=== PATIENT | male | born 1940 | race Caucasian/White ===

== ENCOUNTER → 2016-11-08 | Day surgery (SDC) | payer MEDICARE, BC ==
[~2016-11-08] MED LIST: ABILIFY10 MG PO; ABILIFY5 MG PO; ALEVE220 M1 PO; ASPIRIN EC81 M1 PO; ASPIRIN PO; ASPIRIN81 M1 PO; BUMEX1 MG; BUMEX1 MG PO; BUMEX2 MG PO; BUSPIRONE HCL10 MG PO; CLARITIN10 MG; COUMADIN5 MG PO; CYMBALTA PO; DIAZEPAM10 MG PO; DOXYCYCLINE150 MG PO; EFFEXOR-XR150 MG PO; FENTANYL1 EAC2 TD; FLAX SEED OIL1000 MG PO; FLOMAX0.4 M1 PO; HYDROCHLOROTHIA25 MG PO; KLOR-CON SPRIN10 MEQ PO; LISINOPRIL PO; LUNESTA2 M1 PO; MICROZIDE12.5 M1 PO; MINOCIN100 M1 PO; MIRAPEX0.75 MG PO; MORPHINE; NASONEX17 GM; NORCO 10/325 TA1 TAB PO; PAXIL PO; PERCOCET 10/3251 TAB PO; POTASSIUM CHLO10 ME1 PO; PRINIVIL40 MG PO; REMERON15 MG PO; TYLOX 5/500 CAP1 CAP; VALIUM10 MG PO; VENLAFAXINE HC150 M1 PO; VICODIN 5/500 T1 TAB; VOLTAREN75 MG PO; ZESTRIL40 MG PO; ZYRTEC
--- NOTE | ~2016-11-08 | OR ---
Unit #: [id number] #: [id number] Patient: BALTAZAR MOSLEY [id number] [address] [address] [id number] O MR#: [id number] NAME: BALTAZAR MOSLEY ROOM: Date of Procedure: 11/08/2016 Admission Date: 11/08/2016 Surgeon: Daniel Moreno M.D. : 1940 Attending Physician: Daniel Moreno M.D. Primary Care Physician: Arlette Au M.D. OPERATIVE REPORT PREOPERATIVE DIAGNOSES Back pain, degenerative disk disease, spinal stenosis, radiculopathy. POSTOPERATIVE DIAGNOSES Back pain, degenerative disk disease, spinal stenosis, radiculopathy. PROCEDURE PERFORMED Lumbar epidural steroid injection with fluoroscopic guidance for needle localization. INDICATIONS FOR PROCEDURE The patient is a 76-year-old male, who had worsening back pain with some monoradicular flare. His symptoms are actually most consistent with spinal stenosis as known to exist. He has an intrathecal pump, which does very well for his chronic back pain, it was last treated a year ago with epidural steroids and did extremely well with a tremendous increase in activity level for over 6 months. The pain has been increasing over the last several months. Plan is to repeat another epidural steroid injection based on his history, pathology, symptomatology, and response to treatment. DESCRIPTION OF PROCEDURE The patient was placed in the seated position. Standard monitors were applied. Sterile prep and drape of the lumbar area was performed. The skin then through left of midline at the L3-L4 level was localized with 1% lidocaine. An 18-gauge Hustead needle was then advanced via left paramedian approach and loss of resistance technique in toward the epidural space. After confirming proper needle tip positioning with fluoroscopy and radiographic contrast, 80 mg of Depo-Medrol and 4 mL of 0.125% bupivacaine were deposited. The patient tolerated the procedure otherwise well and was discharged to the recovery room in stable condition. Dictated by... Daniel Moreno M.D. LHP/modl TD: 11/08/2016 23:01 JOB #: [id number] Unit #: [id number] #: [id number] Patient: BALTAZAR MOSLEY OPERATIVE REPORT Page 1 of 1 X Daniel Moreno MD X PROCEDURE OPERATIVE NOTE
== END | disposition home or self-care (01) ==
LOC: CCSC 10:38
DX: G89.29 Other chronic pain (principal); M51.16 Intervertebral disc disorders with radiculopathy, lumbar region; M48.06 Spinal stenosis, lumbar region; Z88.0 Allergy status to penicillin; Z79.01 Long term (current) use of anticoagulants; Z79.51 Long term (current) use of inhaled steroids; Z79.899 Other long term (current) drug therapy
CPT/HCPCS: J1040; J2250

== ENCOUNTER → 2016-11-22 | Day surgery (SDC) | payer MEDICARE, BC ==
--- NOTE | ~2016-11-22 | OR ---
Unit #: [id number] #: [id number] Patient: BALTAZAR MOSLEY [id number] [address] [address] [id number] O MR#: [id number] NAME: BALTAZAR MOSLEY ROOM: Date of Procedure: 11/22/2016 Admission Date: 11/22/2016 Surgeon: Daniel Moreno M.D. : 1940 Attending Physician: Daniel Moreno M.D. Primary Care Physician: Arlette Au M.D. OPERATIVE REPORT PREOPERATIVE DIAGNOSES Back pain, radiculopathy, degenerative disk disease, spinal stenosis. POSTOPERATIVE DIAGNOSES Back pain, radiculopathy, degenerative disk disease, spinal stenosis. PROCEDURE PERFORMED Lumbar epidural steroid injection with fluoroscopic guidance for needle localization. INDICATIONS FOR PROCEDURE The patient is a 76-year-old male with worsening back and radicular pain due to nonsurgical pathology causing nerve root irritation and spinal stenosis. The patient has treated primarily with pain pump. He had epidural steroid injections done last year. He had re-flaring of the radiculitis and stenosis symptoms, so decision was made to give a trial of epidural steroids. First was done 2 weeks ago resulted in 50% settling of his symptoms. Based on his good partial response, we are going to proceed with a second injection at this point. DESCRIPTION OF PROCEDURE The patient was placed in a seated position. Standard monitors were applied. Sterile prep and drape of the lumbar area was performed. The skin at the left of midline at the L3-L4 level was localized with 1% lidocaine. An 18-gauge Choice Therapeuticstead needle was then advanced via left paramedian approach and loss of resistance technique in toward the epidural space. After confirming proper positioning with fluoroscopy and radiographic contrast, 80 mg of Depo-Medrol and 4 mL of 0.125% bupivacaine were deposited. The patient tolerated the procedure otherwise well and was discharged to the recovery room in stable condition. Dictated by... Daneil Moreno M.D. LHP/modl TD: 11/23/2016 02:39 JOB #: [id number] Unit #: [id number] #: [id number] Patient: BALTAZAR MOSLEY OPERATIVE REPORT Page 1 of 1 X Daniel Moreno MD X PROCEDURE OPERATIVE NOTE
== END | disposition home or self-care (01) ==
LOC: CCSC 10:49
DX: M51.16 Intervertebral disc disorders with radiculopathy, lumbar region (principal); M48.06 Spinal stenosis, lumbar region
CPT/HCPCS: J1040; J2250

== ENCOUNTER → 2016-12-13 | Day surgery (SDC) | payer MEDICARE, BC ==
--- NOTE | ~2016-12-13 | OR ---
Unit #: [id number] #: [id number] Patient: BALTZAAR MOSLEY [id number] [address] [place], [place] [address] [id number] O MR#: [id number] NAME: BALTAZAR MOSLEY ROOM: Date of Procedure: 12/13/2016 Admission Date: 12/13/2016 Surgeon: Daniel Moreno M.D. : 1940 Attending Physician: Daniel Moreno M.D. Referring Physician: Daniel Moreno M.D. Primary Care Physician: Arlette Au M.D. OPERATIVE REPORT PREOPERATIVE DIAGNOSES Back pain, radiculopathy, degenerative disk disease, lumbar spinal stenosis. POSTOPERATIVE DIAGNOSES Back pain, radiculopathy, degenerative disk disease, lumbar spinal stenosis. PROCEDURE PERFORMED Lumbar epidural steroid injection with fluoroscopic guidance for needle localization. INDICATIONS FOR PROCEDURE The patient is a 76-year-old male, who had flaring of back and radicular pain that was not helped by his pump which helps his chronic pain issues, but not settle with conservative measures. The feeling was that there was a bit of a radiculitis as the etiology and the decision made to give a trial of epidural steroids. Two of which were done at this point over the last month and a half or so. They have given additive significant settling of his pain down near its baseline before flared. Requests a final injection trying to see if we can get it back to that pre-flare level which is reasonable. We will follow the patient back at pain center. DESCRIPTION OF PROCEDURE The patient was placed in a seated position. Standard monitors were applied. Sterile prep and drape of the lumbar area was performed. The skin then at the L4 level was localized with 1% lidocaine just to the right of midline. An 18-gauge MyWealthtead needle was then advanced via right paramedian approach and loss of resistance technique in toward the epidural space. The patient did not complain of pain or paresthesia during needle advancement. After confirming proper positioning with fluoroscopy and radiographic contrast, 80 mg of Depo-Medrol and 4 mL of 0.125% bupivacaine were deposited. The patient tolerated the procedure otherwise well and was discharged to the recovery room in stable condition. Dictated by... Daniel Moreno M.D. LHP/modl Unit #: [id number] #: [id number] Patient: BALTAZAR MOSLEY TD: 12/13/2016 17:36 JOB #: [id number] OPERATIVE REPORT Page 1 of 1 X Daniel Moreno MD X PROCEDURE OPERATIVE NOTE
== END | disposition home or self-care (01) ==
LOC: CCSC 10:30
DX: G89.29 Other chronic pain (principal); M51.16 Intervertebral disc disorders with radiculopathy, lumbar region; M48.06 Spinal stenosis, lumbar region; Z88.0 Allergy status to penicillin; Z79.01 Long term (current) use of anticoagulants; Z79.899 Other long term (current) drug therapy
CPT/HCPCS: J1040; J2250

== ENCOUNTER → 2017-01-20 | Outpatient (CLI) | payer MEDICARE, BC ==
--- NOTE | ~2017-01-20 | MR18 ---
[facility] A Service of [facility] & [facility] RADIOLOGY TEXT RESULTS PATIENT: BALTAZAR MOSLEY LOCATION: [facility] : 44 UNIT #: [id number] AGE: [address]: Arlette Au MD SEX: M ORDER DR: [id number] [facility] [address] [place], [place] [address] [id number] O MR#: [id number] Acc #: [id number] NAME: BALTAZAR MOSLEY : 1940 SEX: M STUDY DATE/TIME: 01/20/2017 18:02 UNIT: [facility] ROOM: STUDY DESCRIPTION: MR Brain Wo Contrast Attending Physician: Arlette Au M.D. Referring Physician: Arlette Au M.D. Ordering Physician: Arlette Au M.D. Primary Care Physician: Arlette Au M.D. MRI CENTER REPORT This report is preliminary unless electronic signature is present. EXAM MRI of the brain without contrast dated 01/20/[address] head without contrast dated 01/04/2014. HISTORY Memory loss for a year, difficulty walking. Patient stumbles often. Checking for Parkinson's disease or dementia. FINDINGS Multisequence, multiplanar imaging of the brain was obtained without contrast. 4 mm hyperintense T2 focus in the left frontal white matter. Another similar one in the left frontal subcortical white matter cannot be excluded. Vascular flow voids of the major cerebral arteries and dural venous sinuses are not completely occluded in these thicker slices. S-shaped nasal septal deviation is seen. Paranasal sinuses, orbits and the ocular structures, and mastoids do not demonstrate any significant abnormality. Status post right cataract surgery. Partially empty sella is seen. Pineal region and upper cervical spine do not demonstrate any significant abnormality. IMPRESSION 1. There is a less than 5 mm hyperintense T2 focus in the left frontal white matter. Another suspicious similar lesion is suspected clinically. Posterosuperior to it. These are nonspecific. Based on age and statistics, they could be related to mild chronic microvascular ischemic change or migraine. 2. No acute stroke, space-occupying intracranial mass, hydrocephalus or midline shift. STS. [facility] A Service of [facility] & [facility] RADIOLOGY TEXT RESULTS PATIENT: BALTAZAR MOSLEY [facility] UNIT #: [id number] AGE: [address]: Arlette Au MD SEX: M ORDER DR: Dictated by... Pato Marie M.D. THIS IS AN ELECTRONICALLY VERIFIED REPORT Pato Marie M.D. at 01/24/2017 11:39 AM CPR/aa TD: 01/23/2017 13:33 JOB #: [id number] MRI CENTER REPORT Page 1 of 1 COPY
== END | disposition home or self-care (01) ==
LOC: CMRI 17:24
DX: R25.1 Tremor, unspecified (principal); R41.3 Other amnesia; R26.89 Other abnormalities of gait and mobility; R90.82 White matter disease, unspecified
CPT/HCPCS: 70551